=== PATIENT | female | born 2000 | race Two or more races ===

== ENCOUNTER → 2023-11-15 | Outpatient (CLI) | payer BC ==
[2023-11-15 07:20] LABS: Basophils # (auto) 0 10 ^3/uL (0-0.2); Basophils % (auto) 0.3 % (0.0-2.0); Eosinophils # (auto) 0.1 10 ^3/uL (0-0.8); Eosinophils % (auto) 0.8 % (0.0-7.0); Hematocrit 41.6 % (36.0-46.0); Lymphocytes % (auto) 29.2 % (10.0-50.0); Mean Corpuscular Hemoglobin 29.8 pg (28.0-32.0); Mean Corpuscular Hgb Conc. 33.6 g/dL (32.0-36.0); Mean Corpuscular Volume 88.7 fL (80.0-100.0); Monocytes # (auto) 0.3 10 ^3/uL (0-1.3); Monocytes % (auto) 4.5 % (0.0-12.0); Neutrophils # (auto) 4.6 10 ^3/uL (1.6-8.6); Neutrophils % (auto) 65.2 % (37.0-80.0); Red Blood Cells 4.69 10^6/uL (4.0-5.20); Red Cell Distribution Width 12.9 % (11.8-14.3)
[2023-11-15 07:27] LABS: Chloride 107 mmol/L (98-107); Potassium 3.4 mmol/L (3.5-5.1); Sodium 139 mmol/L (136-145)
[2023-11-15 07:28] LABS: Anion Gap 8 (5-15); Carbon Dioxide 24 mmol/L (20-30)
[2023-11-15 07:29] LABS: Calcium 9.2 mg/dL (8.5-10.1)
[2023-11-15 07:33] LABS: Glucose 131 mg/dL (74-106); Triglycerides 91 mg/dL (< 150)
[2023-11-15 07:34] LABS: BUN/Creatinine Ratio 12.5 (10.0-20.0); Blood Urea Nitrogen 9 mg/dL (9-23); LDL Cholesterol 90 mg/dL (< 100)
[2023-11-15 07:35] LABS: Cholesterol 156 mg/dL (< 200); HDL Cholesterol 55 mg/dL (40-59)
[2023-11-15 10:47] LABS: Large Platelets FEW; Platelet Estimate Adequate
== END | disposition home or self-care (01) ==
LOC: LAB 06:49
PROVIDERS: ATTEND Student in an Organized Health Care Education/Training Program
DX: E03.9 Hypothyroidism, unspecified (principal)
CPT/HCPCS: 36415; 80048; 80061; 84443; 85025

== ENCOUNTER → 2024-06-19 | Outpatient (CLI) | payer BC ==
[2024-06-19 12:32] LABS: Basophils # (auto) 0 10 ^3/uL (0-0.2); Basophils % (auto) 0.2 % (0.0-2.0); Eosinophils # (auto) 0 10 ^3/uL (0-0.8); Eosinophils % (auto) 0.3 % (0.0-7.0); Hematocrit 41.9 % (36.0-46.0); Hemoglobin 14.5 g/dL (12.2-16.2); Lymphocytes # (auto) 1.8 10 ^3/uL (0.4-5.4); Lymphocytes % (auto) 16.5 % (10.0-50.0); Mean Corpuscular Hemoglobin 31.8 pg (28.0-32.0); Mean Corpuscular Hgb Conc. 34.6 g/dL (32.0-36.0); Mean Corpuscular Volume 91.8 fL (80.0-100.0); Monocytes # (auto) 0.4 10 ^3/uL (0-1.3); Monocytes % (auto) 4.1 % (0.0-12.0); Neutrophils # (auto) 8.4 10 ^3/uL (1.6-8.6); Neutrophils % (auto) 78.9 % (37.0-80.0); Platelet Count (auto) 213 10^3/uL (140-450); Red Blood Cells 4.56 10^6/uL (4.0-5.20); White Blood Cell 10.6 10^3/uL (4.4-10.8)
[2024-06-19 13:07] LABS: Amphetamine Screen, Urine Neg (NEGATIVE)
[2024-06-19 13:08] LABS: Barbiturate Scree,Urine Neg (NEGATIVE); Benzodiazephine Screen, Urine Neg (NEGATIVE); Cannabinoid Screen, Urine Pos (NEGATIVE); Cocaine Screen, Urine Neg (NEGATIVE); Opiate Scree,Urine Neg (NEGATIVE); Phencyclidine Screen, Urine Neg (NEGATIVE)
[2024-06-20 10:06] LABS: RPR Non Reactive (Non Reactive)
[2024-06-20 13:06] LABS: Chlamydia Trachomatis, NAA Negative (Negative); Neisseria gonorrhoeae, NAA Negative (Negative)
== END | disposition home or self-care (01) ==
LOC: LAB 11:59
PROVIDERS: ATTEND Obstetrics & Gynecology
DX: Z31.430 Encounter of female for testing for genetic disease carrier status for procreative management (principal); N39.0 Urinary tract infection, site not specified
CPT/HCPCS: 36415; 80307; 83036; 84144; 84702; 85025; 86592; 86703; 86762; 86850; 86900; 86901; 87086; 87340

== ENCOUNTER → 2024-09-29 | Outpatient (CLI) | payer BC ==
[2024-09-29 10:28] LABS: Basophils # (auto) 0 10 ^3/uL (0-0.2); Basophils % (auto) 0.3 % (0.0-2.0); Eosinophils # (auto) 0 10 ^3/uL (0-0.8); Eosinophils % (auto) 0.2 % (0.0-7.0); Hematocrit 39.1 % (36.0-46.0); Hemoglobin 13.4 g/dL (12.2-16.2); Lymphocytes # (auto) 1.6 10 ^3/uL (0.4-5.4); Lymphocytes % (auto) 18.7 % (10.0-50.0); Mean Corpuscular Hemoglobin 32.1 pg (28.0-32.0); Mean Corpuscular Hgb Conc. 34.4 g/dL (32.0-36.0); Mean Corpuscular Volume 93.4 fL (80.0-100.0); Monocytes # (auto) 0.5 10 ^3/uL (0-1.3); Monocytes % (auto) 6.1 % (0.0-12.0); Neutrophils # (auto) 6.3 10 ^3/uL (1.6-8.6); Neutrophils % (auto) 74.7 % (37.0-80.0); Platelet Count (auto) 196 10^3/uL (140-450); Red Blood Cells 4.19 10^6/uL (4.0-5.20); Red Cell Distribution Width 12.3 % (11.8-14.3); White Blood Cell 8.5 10^3/uL (4.4-10.8)
== END | disposition home or self-care (01) ==
LOC: LAB 09:42
PROVIDERS: ATTEND Obstetrics & Gynecology
DX: Z34.00 Encounter for supervision of normal first pregnancy, unspecified trimester (principal); Z3A.00 Weeks of gestation of pregnancy not specified
CPT/HCPCS: 36415; 82951; 83036; 85025; 87086

== ENCOUNTER → 2024-10-13 | Outpatient (CLI) | payer BC | END | disposition home or self-care (01) | LOC: LAB 11:42 | PROVIDERS: ATTEND Obstetrics & Gynecology | DX: E03.9 Hypothyroidism, unspecified (principal) | CPT/HCPCS: 36415; 84443 ==

== ENCOUNTER 2024-10-23 06:18 | Observation (INO) | payer BC ==
[~2024-10-23] VITALS: Ht 170.2 cm; Wt 77.1 kg
--- NOTE | 2024-10-24 12:35 | DVHDS2 ---
Physician Discharge Progress N Final Diagnosis: gdm,[id number] Operations or Procedures: Operations or Procedures nst,sono Condition on Discharge: Good Disposition: Home Discharge Instructions: Diet: Regular Activity: Light activity Medications: na Follow Up Care: Specialist: 2d Discharge Statement: "Patient was advised to return to the ER or call 911 if any headaches, dizziness, shortness of breath, chest pain, abdominal pain, bleeding, fevers, or worsening of medical condition. Patient was counseled about treatment plan, medications, possible side effects, patientverbalized understanding. All questions were answered to the best of my ability. This discharge took greater then 30 minutes in planning, reviewing documentation, counseling the patient, and discussing with other team members." Visit Coding OBGYN Date of Service: Oct 23, 2024 Billing Provider: LOGAN JAMA DO MILL HELPER Common Visit Codes: 82041-[id number] OBS CARE (HIGH) MILL HELPER Procedure Codes: 14456-42- NON-STRESS TEST LOGAN JAMA DO Oct 24, 2024 12:35
== END 2024-10-23 11:18 | disposition home or self-care (01) ==
LOC: UNDOADMOB 10:05 → LDRP 10:05 → UNDODISOB 11:18
PROVIDERS: ADMIT Obstetrics & Gynecology; ATTEND Obstetrics & Gynecology
DX: O24.419 Gestational diabetes mellitus in pregnancy, unspecified control (principal); O99.283 Endocrine, nutritional and metabolic diseases complicating pregnancy, third trimester; E03.9 Hypothyroidism, unspecified; Z98.890 Other specified postprocedural states; Z79.899 Other long term (current) drug therapy; Z3A.30 30 weeks gestation of pregnancy
CPT/HCPCS: 81002; 82948; 94760; G0378

== ENCOUNTER 2024-10-30 06:11 | Observation (INO) | payer BC ==
[2024-10-30] MEDS ORDERED: PREN1TAB71 OR (11:02)
--- NOTE | 2024-10-30 11:07 | DVH ---
BIOPHYSICAL PROFILE HISTORY: GDMA2 Comparison Study: None TECHNIQUE: Multiple real-time grayscale sonographic images through the gravid uterus of the fetus wi th duplex Doppler color flow and M-mode spectral analysis FINDINGS: BIOPHYSICAL PROFILE: breathing score: 2 movement score: 2 tone score: 2 Quantitative DANIELITO score: 2 (DANIELITO: 12 Cm.) Total score: 8 The cervix is not visualized Single live fetus in cephalic presentation. heart rate 145 beats per minute. Posterior placenta without previa or abruption IMPRESSION: Biophysical profile score: 8
--- NOTE | 2024-10-30 22:59 | DVHDS2 ---
Discharge Summary Date of Admission Oct 30, 2024 at 10:13 Date of Discharge: Oct 30, 2024 Admitting Diagnosis GDM A1 Hypothyroid 32 weeks Labs/Diagnostic Data: Laboratory Results Test 10/30/24 11:38 POC Glucose 108 mg/dl (70-106) Brief Hx & Hospital Course: NST Condition at Discharge: Good Final Diagnosis/Problems List GDM A1 hypothyroid Discharge Disposition: Home Discharge Instruct/Medications Diet: Consistent carbohydrate Activity: No Restrictions, As Tolerated Activity comment: Kick counts labor precautions Discharge Statement: "Patient was advised to return to the ER or call 911 if any headaches, dizziness, shortness of breath, chest pain, abdominal pain, bleeding, fevers, or worsening of medical condition. Patient was counseled about treatment plan, medications, possible side effects, patientverbalized understanding. All questions were answered to the best of my ability. This discharge took greater then 30 minutes in planning, reviewing documentation, counseling the patient, and discussing with other team members." ASSESSMENT ASSESSMENT Assessment Visit Coding OBGYN Date of Service: Oct 30, 2024 Billing Provider: ANDREWS WEN DO PURSE MAKER Common Visit Codes: 43422-IJL/OBS SAME DATE (LOW), 99351-GEX/OBS SAME DATE (MOD), 80772-ZMA/OBS SAME DATE (HIGH) PURSE MAKER Procedure Codes: 68750-90- NON-STRESS TEST ANDREWS WEN DO Oct 30, 2024 22:59
[2024-11-14] MEDS ORDERED: LEVO25TA6 PO (17:40)
== END 2024-10-30 12:01 | disposition home or self-care (01) ==
LOC: LDRP 10:13
PROVIDERS: ADMIT Obstetrics & Gynecology; ATTEND Obstetrics & Gynecology
DX: O24.419 Gestational diabetes mellitus in pregnancy, unspecified control (principal); O99.283 Endocrine, nutritional and metabolic diseases complicating pregnancy, third trimester; E03.9 Hypothyroidism, unspecified; Z3A.32 32 weeks gestation of pregnancy; Z98.890 Other specified postprocedural states; Z79.899 Other long term (current) drug therapy
CPT/HCPCS: 76818; 81002; 82948; 82962; G0378; 76819

== ENCOUNTER 2024-11-06 10:11 | Observation (INO) | payer BC ==
[~2024-11-06 10:11] MED LIST: PREN1TAB71 OR
--- NOTE | 2024-11-06 11:20 | DVH ---
BIOPHYSICAL PROFILE HISTORY: GDMA1, hypothyroidism Comparison Study: None TECHNIQUE: Multiple real-time grayscale sonographic images through the gravid uterus of the fetus wi th duplex Doppler color flow and M-mode spectral analysis FINDINGS: BIOPHYSICAL PROFILE: breathing score: 2 movement score: 2 tone score: 2 Quantitative DANIELITO score: 2 (DANIELITO: 11.4 Cm.) Total score: 8 The cervix is not visualized Single live fetus in cephalic presentation. heart rate 155 beats per minute. Posterior placenta without previa or abruption Possible nuchal cord. IMPRESSION: Biophysical profile score: 8 Possible nuchal cord is present.
--- NOTE | 2024-11-06 11:22 | DVHDS2 ---
Physician Discharge Progress N Final Diagnosis: gdm Operations or Procedures: Operations or Procedures nst,sono Condition on Discharge: Good Disposition: Home Discharge Instructions: Diet: Consistent carbohydrate Activity: No Restrictions, As Tolerated Medications: na Follow Up Care: Specialist: 4d Discharge Statement: "Patient was advised to return to the ER or call 911 if any headaches, dizziness, shortness of breath, chest pain, abdominal pain, bleeding, fevers, or worsening of medical condition. Patient was counseled about treatment plan, medications, possible side effects, patientverbalized understanding. All questions were answered to the best of my ability. This discharge took greater then 30 minutes in planning, reviewing documentation, counseling the patient, and discussing with other team members." Visit Coding OBGYN Date of Service: Nov 06, 2024 Billing Provider: LOGAN JAMA DO COOKIE MIXER HELPER Common Visit Codes: 42400-[id number] OBS CARE (HIGH) COOKIE MIXER HELPER Procedure Codes: 45440-47- NON-STRESS TEST LOGAN JAMA DO Nov 06, 2024 11:22
== END 2024-11-06 11:52 | disposition home or self-care (01) ==
LOC: LDRP 10:11
PROVIDERS: ADMIT Obstetrics & Gynecology; ATTEND Obstetrics & Gynecology
DX: O24.419 Gestational diabetes mellitus in pregnancy, unspecified control (principal); Z98.890 Other specified postprocedural states; Z79.899 Other long term (current) drug therapy; Z3A.33 33 weeks gestation of pregnancy
CPT/HCPCS: 76818; 81002; 82948; 82962; 94760; G0378; 76819

== ENCOUNTER 2024-11-13 09:38 | Observation (INO) | payer BC ==
--- NOTE | 2024-11-14 17:29 | DVH ---
BIOPHYSICAL PROFILE HISTORY: GDMA1, Hypothyroid TECHNIQUE: Multiple transabdominal real-time grayscale sonographic images through the gravid uterus of the fetus with duplex Doppler color flow and M-mode spectral analysis FINDINGS: BIOPHYSICAL PROFILE: breathing score: 2 movement score: 2 tone score: 2 Quantitative DANIELITO score: 2 (DANIELITO: 12.2 Cm.) Total score: 8 The cervix is not well-visualized Single live fetus in cephalic presentation. heart rate 141 beats per minute. Grade 2 posterior placenta without previa or abruption IMPRESSION: Biophysical profile score: 8
[2024-11-14] MEDS ORDERED: LEVO25TA6 PO ×2 (17:40)
--- NOTE | 2024-11-14 23:01 | DVHDS2 ---
Physician Discharge Progress N Final Diagnosis: testing for GDM,A1/hypothyroidism Operations or Procedures: Operations or Procedures 24yo IUP@34.2wks VSS NST reactive FKC/PTL precautions reviewed. Dr. Zafar consulted, agrees with POC. Other Interventions Other Interventions [facility] [id number] [place] [id number] Ph: [phone] DIAGNOSTIC IMAGING Diagnostic Imaging Report : [id number] Signed PATIENT: HALEY CARTER ACCT: [id number] UNIT: [id number] : 2000 LOC: [facility] ROOM / BED: TRIAGE3 / A AGE / SEX: 24 / F ADM STATUS: ADM IN SERVICE 24 ORDERING PHYSICIAN: LENARD LÓPEZ CNM PROCEDURE(s): BPP - BIOPHYSICAL PROFILE REASON: GDMA1, Hypothyroid ORDER NUMBER(s): [id number], ACCESSION NUMBER(s): [id number] BIOPHYSICAL PROFILE HISTORY: GDMA1, Hypothyroid TECHNIQUE: Multiple transabdominal real-time grayscale sonographic images through the gravid uterus of the fetus with duplex Doppler color flow and M-mode spectral analysis FINDINGS: BIOPHYSICAL PROFILE: breathing score: 2 movement score: 2 tone score: 2 Quantitative DANIELITO score: 2 (DANIELITO: 12.2 Cm.) Total score: 8 The cervix is not well-visualized Single live fetus in cephalic presentation. heart rate 141 beats per minute. Grade 2 posterior placenta without previa or abruption IMPRESSION: Biophysical profile score: 8 ATED BY: MIRIAM GILMORE DO DICTATED DATE/TIME: 11/14/241725 SIGNED BY: MIRIAM GILMORE DO SIGNED DATE/TIME: 11/14/241725 CC: Condition on Discharge: Stable Disposition: Home Discharge Instructions: Diet: See Comment Diet comment: GDMA 1 DIET INSTRUCTED BY PROVIDER Activity: No Restrictions, As Tolerated Follow Up/Referral: PLEASE CONTINUE ONCE WEEKLY NST/BPP'S AND RETURN Wednesday11/20/24 @1500, OR RETURN TO [facility]/NEAREST ED FOR ANY CONCERNS/COMPLAINTS Medications: CONTINUE ALL PRESCIPTION MEDICATIONS EXACTLY PRESCRIBED Follow Up Care: Specialist: f/u in 1 wk Discharge Statement: "Patient was advised to return to the ER or call 911 if any headaches, dizziness, shortness of breath, chest pain, abdominal pain, bleeding, fevers, or worsening of medical condition. Patient was counseled about treatment plan, medications, possible side effects, patientverbalized understanding. All questions were answered to the best of my ability. This discharge took greater then 30 minutes in planning, reviewing documentation, counseling the patient, and discussing with other team members." Visit Coding OBGYN Date of Service: Nov 14, 2024 Billing Provider: LENARD LÓPEZ CNM CORE MACHINE TENDER Common Visit Codes: 91334-[id number] OBS CARE (HIGH) CORE MACHINE TENDER Procedure Codes: 00307-07- NON-STRESS TEST LENARD LÓPEZ CNM Nov 14, 2024 23:01
== END 2024-11-14 17:56 | disposition home or self-care (01) ==
LOC: LDRP 11-14 15:53 → UNDOADMOB 11-14 15:53 → LDRP 11-14 16:27 → UNDODISOB 11-14 16:58
PROVIDERS: ADMIT Obstetrics & Gynecology; ATTEND Obstetrics & Gynecology
DX: O24.419 Gestational diabetes mellitus in pregnancy, unspecified control (principal); O99.283 Endocrine, nutritional and metabolic diseases complicating pregnancy, third trimester; E03.9 Hypothyroidism, unspecified; Z98.890 Other specified postprocedural states; Z79.899 Other long term (current) drug therapy; Z3A.34 34 weeks gestation of pregnancy
CPT/HCPCS: 76818; 76819; 81002; 82948; 82962

== ENCOUNTER 2024-11-20 06:38 | Observation (INO) | payer BC, OTHER ==
[~2024-11-20 06:38] MED LIST changes: +LEVO25TA6 PO
--- NOTE | 2024-11-20 14:03 | DVH ---
CLINICAL HISTORY: Gestational diabetes. COMPARISON: US BIOPHYSICAL PROFILE on DOS: 11/14/24, US BIOPHYSICAL PROFILE on DOS: 11/06/24, US BIOPHY SICAL PROFILE on DOS: 10/30/24 TECHNIQUE: biophysical profile was performed. Transabdominal sonographic images of the fetus we re obtained. FINDINGS: The fetus is in cephalic position. heart rate measures 139 BPM. Amniotic fluid index measures 14.1 cm. The placenta is posterior in position without evidence of previa or abruption. BPP profile is an overall score of 8/8, with 2/2 points for breathing, with at least one episode of breathing over a 30 second duration during a 30 minute observation, 2/2 points for m ovements, with 3 or more discrete body or limb movements, 2/2 points for tone, with one or more episodes of extremity extension with return to flexion, or opening and closing of hand, and 2/ 2 points for amniotic fluid, with at least 1 pocket of amniotic fluid that measures 2 cm in 2 perpend icular planes. IMPRESSION: BPP score of 8/8.
== END 2024-11-20 14:49 | disposition home or self-care (01) ==
LOC: LDRP 13:30
PROVIDERS: ADMIT Obstetrics & Gynecology; ATTEND Obstetrics & Gynecology
DX: O24.419 Gestational diabetes mellitus in pregnancy, unspecified control (principal); Z98.890 Other specified postprocedural states; Z79.899 Other long term (current) drug therapy; Z3A.35 35 weeks gestation of pregnancy
CPT/HCPCS: 76818; 81002; 82948; G0378; 59025; 76819

== ENCOUNTER 2024-11-27 07:56 | Observation (INO) | payer BC, OTHER ==
--- NOTE | 2024-11-27 13:52 | DVH ---
BIOPHYSICAL PROFILE HISTORY: GDMA2, Hypothyroidism Comparison: 11/14/2024 TECHNIQUE: Multiple transabdominal real-time grayscale sonographic images through the gravid uterus of the fetus with duplex Doppler color flow and M-mode spectral analysis FINDINGS: BIOPHYSICAL PROFILE: breathing score: 2/2 movement score: 2/2 tone score: 2/2 Quantitative DANIELITO score: 2/2 (DANIELITO: 14.3 Cm.) Total score: 8/8 The cervix closed Single live fetus in cephalic presentation. heart rate 146 beats per minute. Posterior placenta without previa or abruption IMPRESSION: 1. Biophysical profile score: 8/8 unchanged from previous exam
--- NOTE | 2024-11-28 05:38 | DVHDS2 ---
Discharge Summary Date of Admission November 27, 2024 at 13:14 Date of Discharge: November 27, 2024 Admitting Diagnosis GDM A1 hypothyroid 36-1/7 weeks Labs/Diagnostic Data: Laboratory Results Test 11/27/24 13:49 POC Glucose 90 mg/dl (70-106) Brief Hx & Hospital Course: Reassuring heart tones and fluid. Condition at Discharge: Good Final Diagnosis/Problems List Reassuring heart tones and fluid. Discharge Disposition: Home Discharge Instruct/Medications Diet: Consistent carbohydrate Activity: No Restrictions, As Tolerated Follow Up/Referral: Kick counts labor precautions Discharge Statement: "Patient was advised to return to the ER or call 911 if any headaches, dizzin ess, shortness of breath, chest pain, abdominal pain, bleeding, fevers, or worsening of medical condition. Patient was counseled about treatment plan, medications, possible side effects, patient�verbalized understanding. All questions were answered to the best of my ability. This discharge took greater then 30 minutes in planning, reviewing documentation, counseling the patient, and discussing with other team members." ASSESSMENT ASSESSMENT Assessment Visit Coding OBGYN Date of Service: November 28, 2024 Billing Provider: ANDREWS WEN DO CORPORATE QUALITY ASSURANCE MANAGER Common Visit Codes: 76750-SPY/OBS SAME DATE (LOW), 50066-NKG/OBS SAME DATE (MOD), 72425-FCV/OBS SAME DATE (HIGH) CORPORATE QUALITY ASSURANCE MANAGER Procedure Codes: 61880-31- NON-STRESS TEST ANDREWS WEN DO November 28, 2024 05:38
== END 2024-11-27 14:18 | disposition home or self-care (01) ==
LOC: UNDOADMOB 13:06 → LDRP 13:06 → UNDODISOB 14:18
PROVIDERS: ADMIT Obstetrics & Gynecology; ATTEND Obstetrics & Gynecology
DX: O24.419 Gestational diabetes mellitus in pregnancy, unspecified control (principal); O99.283 Endocrine, nutritional and metabolic diseases complicating pregnancy, third trimester; E03.9 Hypothyroidism, unspecified; Z98.890 Other specified postprocedural states; Z79.899 Other long term (current) drug therapy; Z3A.36 36 weeks gestation of pregnancy
CPT/HCPCS: 59025; 76819; 81002; 82948; 82962; 94760; G0378; 76818

== ENCOUNTER 2024-12-04 07:20 | Observation (INO) | payer BC, OTHER ==
--- NOTE | 2024-12-04 12:03 | DVH ---
CLINICAL HISTORY: Gestational diabetes. COMPARISON: US BIOPHYSICAL PROFILE on DOS: 11/27/24, US BIOPHYSICAL PROFILE on DOS: 11/20/24, US BIOPHYS ICAL PROFILE on DOS: 11/14/24 TECHNIQUE: biophysical profile was performed. Transabdominal sonographic images of the fetus we re obtained. FINDINGS: The fetus is in cephalic position. heart rate measures 132 BPM. Amniotic fluid index measures 14.2 cm. The placenta is posterior in position. BPP profile is an overall score of 8/8, with 2/2 points for breathing, with at least one episode of breathing over a 30 second duration during a 30 minute observation, 2/2 points for m ovements, with 3 or more discrete body or limb movements, 2/2 points for tone, with one or more episodes of extremity extension with return to flexion, or opening and closing of hand, and 2/ 2 points for amniotic fluid, with at least 1 pocket of amniotic fluid that measures 2 cm in 2 perpend icular planes. IMPRESSION: BPP score of 8/8.
--- NOTE | 2024-12-04 17:39 | DVHDS2 ---
Physician Discharge Progress N Final Diagnosis: GDM Secondary Diagnosis: Encounter for surveillance Operations or Procedures: Operations or Procedures NST reactive reviewed BPP/DANIELITO WNL Commentary: Commentary status reassuring Condition on Discharge: Stable Disposition: Home Discharge Instructions: Diet: Consistent carbohydrate Activity: No Restrictions, As Tolerated Follow Up/Referral: As scheduled Medications: N/A Follow Up Care: Discharge Statement: "Patient was advised to return to the ER or call 911 if any headaches, dizziness, shortness of breath, chest pain, abdominal pain, bleeding, fevers, or worsening of medical condition. Patient was counseled about treatment plan, medications, possible side effects, patientverbalized understanding. All questions were answered to the best of my ability. This discharge took greater then 30 minutes in planning, reviewing documentation, counseling the patient, and discussing with other team members." Visit Coding OBGYN Date of Service: December 04, 2024 Billing Provider: TERESA HARDIN DO WATER MAIN INSTALLER HELPER Common Visit Codes: 23311-[id number] INP/OBS CARE(HIGH) WATER MAIN INSTALLER HELPER Procedure Codes: 37575-63- NON-STRESS TEST TERESA HARDIN DO December 04, 2024 17:39
== END 2024-12-04 12:30 | disposition home or self-care (01) ==
LOC: UNDOADMOB 10:26 → LDRP 10:26
PROVIDERS: ADMIT Obstetrics & Gynecology; ATTEND Obstetrics & Gynecology
DX: O24.419 Gestational diabetes mellitus in pregnancy, unspecified control (principal); Z98.890 Other specified postprocedural states; Z79.899 Other long term (current) drug therapy; Z3A.36 36 weeks gestation of pregnancy
CPT/HCPCS: 76818; 81002; 82948; 82962; G0378; 59025; 76819

== ENCOUNTER 2024-12-05 11:47 | Observation (INO) | payer BC, OTHER ==
[2024-12-05 12:56] LABS: Protein, Urine 55.2 mg/dL (1-14)
[2024-12-05 12:57] LABS: Basophils # (auto) 0 10 ^3/uL (0-0.2); Basophils % (auto) 0.1 % (0.0-2.0); Eosinophils # (auto) 0 10 ^3/uL (0-0.8); Eosinophils % (auto) 0.2 % (0.0-7.0); Hematocrit 41.4 % (36.0-46.0); Hemoglobin 14.6 g/dL (12.2-16.2); Lymphocytes # (auto) 1.3 10 ^3/uL (0.4-5.4); Lymphocytes % (auto) 16.6 % (10.0-50.0); Mean Corpuscular Hemoglobin 32.1 pg (28.0-32.0); Mean Corpuscular Hgb Conc. 35.4 g/dL (32.0-36.0); Mean Corpuscular Volume 90.6 fL (80.0-100.0); Monocytes # (auto) 0.5 10 ^3/uL (0-1.3); Monocytes % (auto) 6.4 % (0.0-12.0); Neutrophils # (auto) 6.1 10 ^3/uL (1.6-8.6); Neutrophils % (auto) 76.7 % (37.0-80.0); Platelet Count (auto) 168 10^3/uL (140-450); Red Blood Cells 4.57 10^6/uL (4.0-5.20); Red Cell Distribution Width 12.3 % (11.8-14.3)
[2024-12-05 12:59] LABS: Creatinine, Urine 106.83 mg/dL (30.0-125.0); Urine Protein/Creatinine Ratio 0.52
[2024-12-05 13:01] LABS: Urine Bacteria FEW /hpf (None Seen); Urine Blood Negative /uL (Negative); Urine Clarity Clear (Clear); Urine Color Light-Yellow (Yellow); Urine Mucus FEW (None Seen); Urine Protein, UAD 1+ (Negative); Urine Specific Gravity 1.019 (1.001-1.035); Urine Squamous Epithelial Cell FEW /hpf (<5); Urine Urobilinogen Normal (Negative); Urine WBC 5 /HPF (0-5); Urine pH 6.5 (5.0-9.0)
[2024-12-05 13:10] LABS: Alanine Aminotransferase 19 U/L (7-40); Anion Gap 10 (5-15); BUN/Creatinine Ratio 19.6 (10.0-20.0); Blood Urea Nitrogen 9 mg/dL (9-23); Calcium 9.4 mg/dL (8.7-10.4); Carbon Dioxide 21 mmol/L (20-31); Chloride 105 mmol/L (98-107); Glucose 92 mg/dL (74-106); Potassium 4.1 mmol/L (3.5-5.1); Total Protein 6.6 g/dL (5.7-8.2); Uric Acid 4.5 mg/dL (3.1-7.8)
[2024-12-05 13:11] LABS: Bilirubin, Total 0.4 mg/dL (0.2-1.0)
[2024-12-05 13:15] LABS: Alkaline Phosphatase 155 U/L (46-116); Aspartate Aminotransferase 12 U/L (13-40); INR 0.92 (0.9-1.15); Partial Thromboplastin Time 30.1 SEC (24.5-34.5); Prothrombin Time 9.8 sec (9.3-11.8); Sodium 136 mmol/L (136-145)
--- NOTE | 2024-12-05 23:09 | DVHDS2 ---
Physician Discharge Progress N Final Diagnosis: rule out preeclampsia Secondary Diagnosis: GDM, A1 Hypothyroidism Operations or Procedures: Operations or Procedures 24yo IUP@37.2wks was sent down from dr. qureshi's office for BP of 140/98. Pt denies LOF/VB/UCs/AQUINO/vision changes/RUQ pain. VSS, normotensive in OB triage (see CPN) NST reactive today BPP 8/8 on 12/04/24 FKC/PTL/PreE precautions reviewed. f/u on 12/07/24 with [address] Qureshi consulted, agrees with POC. Laboratory Tests Test 12/05/24 11:55 12/05/24 12:13 Range/Units Urine Color Light-yellow Yellow Urine Clarity Clear Clear Urine pH 6.5 5.0-9.0 Urine Specific [place] 1.019 1.001-1.035 Urine Protein 1+ H Negative Urine Ketones Negative Negative Urine Blood Negative Negative /uL Urine Nitrite Negative Negative Urine Bilirubin Negative Negative Urine Urobilinogen Normal Negative mg/dL Urine Leukocyte Esterase 3+ Negative /uL Urine RBC 2 0 - 4 /hpf Urine Microscopic WBC 5 0-5 /HPF Urine Squamous Epithelial Cells Few <5 /hpf Urine Bacteria Few H None Seen /hpf Urine Mucus Few None Seen Urine Creatinine 106.83 30.0-125.0 mg/dL Urine Protein/Creatinine Ratio 0.52 Urine Glucose Normal Normal mg/dL Urine Total Protein 55.2 H 1-14 mg/dL White Blood Count 8.0 4.4-10.8 10^3/uL Red Blood Count 4.57 4.0-5.20 10^6/uL Hemoglobin 14.6 12.2-16.2 g/dL Hematocrit 41.4 36.0-46.0 % Mean Corpuscular Volume 90.6 80.0-100.0 fL Mean Corpuscular Hemoglobin 32.1 H 28.0-32.0 pg Mean Corpuscular Hemoglobin Concent 35.4 32.0-36.0 g/dL Red Cell Distribution Width 12.3 11.8-14.3 % Platelet Count 168 140-450 10^3/uL Mean Platelet Volume 10.2 6.9-10.8 fL Neutrophils (%) (Auto) 76.7 37.0-80.0 % Lymphocytes (%) (Auto) 16.6 10.0-50.0 % Monocytes (%) (Auto) 6.4 0.0-12.0 % Eosinophils (%) (Auto) 0.2 0.0-7.0 % Basophils (%) (Auto) 0.1 0.0-2.0 % Neutrophils # (Auto) 6.1 1.6-8.6 10 ^3/uL Lymphocytes # (Auto) 1.3 0.4-5.4 10 ^3/uL Monocytes # (Auto) 0.5 0-1.3 10 ^3/uL Eosinophils # (Auto) 0 0-0.8 10 ^3/uL Basophils # (Auto) 0 0-0.2 10 ^3/uL Nucleated Red Blood Cells 0.0 % Prothrombin Time 9.8 9.3-11.8 sec Prothrombin Time INR 0.92 0.9-1.15 Activated Partial Thromboplast Time 30.1 24.5-34.5 SEC Sodium Level 136 136-145 mmol/L Potassium Level 4.1 3.5-5.1 mmol/L Chloride Level 105 98-107 mmol/L Carbon Dioxide Level 21 20-31 mmol/L Anion Gap 10 5-15 Blood Urea Nitrogen 9 9-23 mg/dL Creatinine 0.46 L 0.550-1.02 mg/dL Glomerular Filtration Rate Calc 136 >90 mL/min BUN/Creatinine Ratio 19.6 10.0-20.0 Serum Glucose 92 74-106 mg/dL Uric Acid 4.5 3.1-7.8 mg/dL Calcium Level 9.4 8.7-10.4 mg/dL Total Bilirubin 0.4 0.2-1.0 mg/dL Aspartate Amino Transferase (AST) 12 L 13-40 U/L Alanine Aminotransferase (ALT) 19 7-40 U/L Alkaline Phosphatase 155 H 46-116 U/L Total Protein 6.6 5.7-8.2 g/dL Albumin 4.0 3.2-4.8 g/dL Condition on Discharge: Stable Disposition: Home Discharge Instructions: Diet: Consistent carbohydrate Activity: No Restrictions, As Tolerated Medications: see med list Follow Up Care: Specialist: f/u on 12/07/24 with 24 hour urine collection Discharge Statement: "Patient was advised to return to the ER or call 911 if any headaches, dizziness, shortness of breath, chest pain, abdominal pain, bleeding, fevers, or worsening of medical condition. Patient was counseled about treatment plan, medications, possible side effects, patientverbalized understanding. All questions were answered to the best of my ability. This discharge took greater then 30 minutes in planning, reviewing documentation, counseling the patient, and discussing with other team members." Visit Coding OBGYN Date of Service: December 05, 2024 Billing Provider: LENARD LÓPEZ CNM GINGER FARMER Common Visit Codes: 23217-[id number] OBS CARE (HIGH) LENARD LÓPEZ CNM December 05, 2024 23:09
== END 2024-12-05 14:01 | disposition home or self-care (01) ==
LOC: LDRP 11:47 → UNDOADMOB 11:47 → LDRP 11:56
PROVIDERS: ADMIT Obstetrics & Gynecology; ATTEND Obstetrics & Gynecology
DX: O24.419 Gestational diabetes mellitus in pregnancy, unspecified control (principal); O99.283 Endocrine, nutritional and metabolic diseases complicating pregnancy, third trimester; E03.9 Hypothyroidism, unspecified; Z98.890 Other specified postprocedural states; Z79.899 Other long term (current) drug therapy; Z3A.37 37 weeks gestation of pregnancy; Z86.2 Personal history of diseases of the blood and blood-forming organs and certain disorders involving the immune mechanism
CPT/HCPCS: 36415; 59025; 80053; 81001; 81002; 82570; 84156; 84550; 85025; 85610; 85730; 94760; G0378

== ENCOUNTER 2024-12-07 06:28 | Observation (INO) | payer BC, OTHER ==
--- NOTE | 2024-12-07 11:21 | DVH ---
BIOPHYSICAL PROFILE HISTORY: PIH/GDMA1 Comparison Study: US BIOPHYSICAL PROFILE on DOS: 12/04/24, US BIOPHYSICAL PROFILE on DOS: 11/27/24, US BIOPHYSICAL PROFILE on DOS: 11/20/24, US BIOPHYSICAL PROFILE on DOS: 11/14/24, US BIOPHYSICAL PROFILE on DOS: 11/06/24 TECHNIQUE: Multiple real-time grayscale sonographic images through the gravid uterus of the fetus wi th duplex Doppler color flow and M-mode spectral analysis FINDINGS: BIOPHYSICAL PROFILE: breathing score: 2 movement score: 2 tone score: 2 Quantitative DANIELITO score: 2 (DANIELITO: 16.4 Cm.) Total score: 8 The cervix was not visualized Single live fetus in cephalic presentation. heart rate 144 beats per minute. Posterior placenta without previa or abruption IMPRESSION: Biophysical profile score: 8
[2024-12-07 12:17] LABS: Protein, Urine 15.9 mg/dL (1-14)
[2024-12-07 12:20] LABS: Creatinine, Urine 45.68 mg/dL (30.0-125.0); Urine Protein/Creatinine Ratio 0.35
[2024-12-07 12:38] LABS: Protein, Urine 8.8 mg/dL (1-14)
[2024-12-07 13:02] LABS: Creatinine, Urine 37.72 mg/dL (30.0-125.0)
[2024-12-07 14:05] LABS: Body Surface Area 2.11
[2024-12-07 14:17] LABS: Creatinine Clearance, Urine 126.33 mL/min (75-115)
--- NOTE | 2024-12-08 13:34 | DVHDS2 ---
Physician Discharge Progress N Final Diagnosis: gdm,pih 37wks Operations or Procedures: Operations or Procedures nst reactive reviewed,sono Condition on Discharge: Good Disposition: Home Discharge Instructions: Diet: Consistent carbohydrate Activity: No Restrictions, As Tolerated Medications: na Follow Up Care: Specialist: 3d Discharge Statement: "Patient was advised to return to the ER or call 911 if any headaches, dizziness, shortness of breath, chest pain, abdominal pain, bleeding, fevers, or worsening of medical condition. Patient was counseled about treatment plan, medications, possible side effects, patientverbalized understanding. All questions were answered to the best of my ability. This discharge took greater then 30 minutes in planning, reviewing documentation, counseling the patient, and discussing with other team members." Visit Coding OBGYN Date of Service: December 07, 2024 Billing Provider: LOGAN JAMA DO SOLE EDGE INKER MACHINE Common Visit Codes: 85456-[place] OBS CARE (HIGH) SOLE EDGE INKER MACHINE Procedure Codes: 38939-01- NON-STRESS TEST LOGAN JAMA DO December 08, 2024 13:34
== END 2024-12-07 12:51 | disposition home or self-care (01) ==
LOC: LDRP 10:33
PROVIDERS: ADMIT Obstetrics & Gynecology; ATTEND Obstetrics & Gynecology
DX: O24.419 Gestational diabetes mellitus in pregnancy, unspecified control (principal); O13.3 Gestational [pregnancy-induced] hypertension without significant proteinuria, third trimester; Z3A.37 37 weeks gestation of pregnancy; Z79.899 Other long term (current) drug therapy; Z98.890 Other specified postprocedural states
CPT/HCPCS: 76818; 82570; 82575; 82948; 84156; 94760; G0378; 59025; 76819

== ENCOUNTER 2024-12-13 07:03 | Observation (INO) | payer BC, OTHER ==
[~2024-12-13] VITALS: Ht 175.3 cm; Wt 93.4 kg
--- NOTE | 2024-12-13 10:18 | DVH ---
BIOPHYSICAL PROFILE HISTORY: GDMA1 TECHNIQUE: Multiple transabdominal real-time grayscale sonographic images through the gravid uterus of the fetus with duplex Doppler color flow and M-mode spectral analysis FINDINGS: BIOPHYSICAL PROFILE: breathing score: 2 movement score: 2 tone score: 2 Quantitative DANIELITO score: 2 (DANIELITO: 15.9 Cm.) Total score: 8 The cervix not well visualized. Single live fetus in cephalic presentation. heart rate 149 beats per minute. Posterior placenta without previa or abruption IMPRESSION: Biophysical profile score: 8
[2024-12-13 11:14] LABS: Urine Bacteria None Seen /hpf (None Seen)
[2024-12-13 11:21] LABS: Basophils # (auto) 0 10 ^3/uL (0-0.2); Basophils % (auto) 0.3 % (0.0-2.0); Eosinophils # (auto) 0 10 ^3/uL (0-0.8); Eosinophils % (auto) 0.4 % (0.0-7.0); Hemoglobin 15.2 g/dL (12.2-16.2); Lymphocytes # (auto) 1.9 10 ^3/uL (0.4-5.4); Lymphocytes % (auto) 24.7 % (10.0-50.0); Mean Corpuscular Hemoglobin 32.1 pg (28.0-32.0); Mean Corpuscular Hgb Conc. 35.3 g/dL (32.0-36.0); Mean Corpuscular Volume 90.9 fL (80.0-100.0); Monocytes # (auto) 0.6 10 ^3/uL (0-1.3); Monocytes % (auto) 7.6 % (0.0-12.0); Neutrophils # (auto) 5.1 10 ^3/uL (1.6-8.6); Nucleated Red Blood Cells % 0.2 %; Platelet Count (auto) 177 10^3/uL (140-450); Red Blood Cells 4.73 10^6/uL (4.0-5.20); Red Cell Distribution Width 12.6 % (11.8-14.3); White Blood Cell 7.6 10^3/uL (4.4-10.8)
[2024-12-13 11:22] LABS: Urine Blood Negative /uL (Negative); Urine Clarity Clear (Clear); Urine Color Light-Yellow (Yellow); Urine Protein, UAD Negative (Negative); Urine Specific Gravity 1.005 (1.001-1.035); Urine Squamous Epithelial Cell FEW /hpf (<5); Urine Urobilinogen Normal (Negative); Urine WBC < 1 /HPF (0-5); Urine pH 6.5 (5.0-9.0)
[2024-12-13 11:34] LABS: INR 0.86 (0.9-1.15); Partial Thromboplastin Time 30.2 SEC (24.5-34.5); Prothrombin Time 9.3 sec (9.3-11.8)
[2024-12-13 11:36] LABS: Protein, Urine < 6.0 mg/dL (1-14)
[2024-12-13 11:38] LABS: Creatinine, Urine 41.25 mg/dL (30.0-125.0); Urine Protein/Creatinine Ratio 0.15
[2024-12-13 11:39] LABS: Alanine Aminotransferase 23 U/L (7-40); Albumin 4.2 g/dL (3.2-4.8); Anion Gap 8 (5-15); Aspartate Aminotransferase 15 U/L (13-40); BUN/Creatinine Ratio 11.1 (10.0-20.0); Calcium 9.7 mg/dL (8.7-10.4); Carbon Dioxide 22 mmol/L (20-31); Chloride 105 mmol/L (98-107); Glucose 92 mg/dL (74-106); Potassium 4.5 mmol/L (3.5-5.1); Total Protein 6.7 g/dL (5.7-8.2)
[2024-12-13 11:40] LABS: Bilirubin, Total 0.5 mg/dL (0.2-1.0)
[2024-12-13 11:41] LABS: Alkaline Phosphatase 183 U/L (46-116); Blood Urea Nitrogen 6 mg/dL (9-23); Sodium 135 mmol/L (136-145)
[2024-12-13 11:51] LABS: Uric Acid 4.7 mg/dL (3.1-7.8)
--- NOTE | 2024-12-13 12:23 | DVHDS2 ---
Physician Discharge Progress N Final Diagnosis: gdm,pih 38wks Operations or Procedures: Operations or Procedures nst reactive reviwed,sono Condition on Discharge: Good Disposition: Home Discharge Instructions: Diet: Consistent carbohydrate Activity: Light activity Medications: na Follow Up Care: Specialist: 3d Discharge Statement: "Patient was advised to return to the ER or call 911 if any headaches, dizziness, shortness of breath, chest pain, abdominal pain, bleeding, fevers, or worsening of medical condition. Patient was counseled about treatment plan, medications, possible side effects, patientverbalized understanding. All questions were answered to the best of my ability. This discharge took greater then 30 minutes in planning, reviewing docum entation, counseling the patient, and discussing with other team members." Visit Coding OBGYN Date of Service: December 13, 2024 Billing Provider: LOGAN JAMA DO VP AD PRODUCTS AND PLANNING Common Visit Codes: [id number]-[id number] OBS CARE (HIGH) VP [employer]ODUCTS AND PLANNING Procedure Codes: 16850-52- NON-STRESS TEST LOGAN JAMA DO December 13, 2024 12:23
== END 2024-12-13 12:16 | disposition home or self-care (01) ==
LOC: UNDOADMOB 08:54 → LDRP 08:54
PROVIDERS: ADMIT Obstetrics & Gynecology; ATTEND Obstetrics & Gynecology
DX: O24.419 Gestational diabetes mellitus in pregnancy, unspecified control (principal); O13.3 Gestational [pregnancy-induced] hypertension without significant proteinuria, third trimester; O99.283 Endocrine, nutritional and metabolic diseases complicating pregnancy, third trimester; E03.9 Hypothyroidism, unspecified; Z3A.38 38 weeks gestation of pregnancy; Z79.899 Other long term (current) drug therapy
CPT/HCPCS: 36415; 76818; 80053; 81001; 81002; 82570; 82948; 82962; 84156; 84550; 85025; 85610; 85730; 94760; G0378; 59025; 76819

== ENCOUNTER 2024-12-19 06:53 | Observation (INO) | payer BC, OTHER ==
--- NOTE | 2024-12-19 09:24 | DVH ---
BIOPHYSICAL PROFILE HISTORY: GDMA1/PIH/Hypothyroidism TECHNIQUE: Multiple transabdominal real-time grayscale sonographic images through the gravid uterus of the fetus with duplex Doppler color flow and M-mode spectral analysis FINDINGS: BIOPHYSICAL PROFILE: breathing score: 2 movement score: 2 tone score: 2 Quantitative DANIELITO score: 2 (DANIELITO: 18 Cm.) Total score: 8 Single live fetus in cephalic presentation. heart rate 144 beats per minute. Posterior placenta without previa or abruption IMPRESSION: Biophysical profile score: 8
--- NOTE | 2024-12-19 10:50 | DVHDS2 ---
Physician Discharge Progress N Final Diagnosis: testing for GDM,A1 and hypothyroidism Operations or Procedures: Operations or Procedures 24yo IUP@39.3wks, +FM, denies LOF/VB/UCs/AQUINO/vision changes/RUQ pain VSS, normotensive NST reactive FKC/PreE/Labor precautions reviewed. Dr. Zafar consulted, agrees with POC. Pt has appt with her later today to discuss induction date. Other Interventions Other Interventions [place] [id number] Ph: [phone] DIAGNOSTIC IMAGING Diagnostic Imaging Report : [id number] Signed PATIENT: HALEY CARTER ACCT: [id number] UNIT: [id number] : 2000 LOC: [facility] ROOM / BED: TRIAGE2 / A AGE / SEX: 24 / F ADM STATUS: ADM IN SERVICE 8 ORDERING PHYSICIAN: LENARD LÓPEZ CNM PROCEDURE(s): BPP - BIOPHYSICAL PROFILE REASON: GDMA1/PIH/Hypothyroidism ORDER NUMBER(s): [id number], ACCESSION NUMBER(s): [id number] BIOPHYSICAL PROFILE HISTORY: GDMA1/PIH/Hypothyroidism TECHNIQUE: Multiple transabdominal real-time grayscale sonographic images through the gravid uterus of the fetus with duplex Doppler color flow and M-mode spectral analysis FINDINGS: BIOPHYSICAL PROFILE: breathing score: 2 movement score: 2 tone score: 2 Quantitative DANIELITO score: 2 (DANIELITO: 18 Cm.) Total score: 8 Single live fetus in cephalic presentation. heart rate 144 beats per minute. Posterior placenta without previa or abruption IMPRESSION: Biophysical profile score: 8 ATED BY: EFREN YOST MD DICTATED DATE/TIME: 12/19/24921 SIGNED BY: EFREN YOST MD SIGNED DATE/TIME: 12/19/24921 CC: Condition on Discharge: Stable Disposition: Home Discharge Instructions: Diet: Consistent carbohydrate Activity: No Restrictions, As Tolerated Medications: see med list Follow Up Care: Specialist: f/u in 3 days Discharge Statement: "Patient was advised to return to the ER or call 911 if any headaches, dizziness, shortness of breath, chest pain, abdominal pain, bleeding, fevers, or worsening of medical condition. Patient was counseled about treatment plan, medications, possible side effects, patientverbalized understanding. All questions were answered to the best of my ability. This discharge took greater then 30 minutes in planning, reviewing documentation, counseling the patient, and discussing with other team members." Visit Coding OBGYN Date of Service: Dec 19, 2024 Billing Provider: LENARD LÓPEZ CNM FURNITURE FINISHER HELPER Common Visit Codes: [id number] OBS CARE (HIGH) FURNITURE FINISHER HELPER Procedure Codes: 97938-85- NON-STRESS TEST LENARD LÓPEZ CNM Dec 19, 2024 10:50
== END 2024-12-19 10:13 | disposition home or self-care (01) ==
LOC: LDRP 08:15 → UNDOADMOB 08:15 → LDRP 08:21 → UNDODISOB 10:13
PROVIDERS: ADMIT Obstetrics & Gynecology; ATTEND Obstetrics & Gynecology
DX: O99.283 Endocrine, nutritional and metabolic diseases complicating pregnancy, third trimester (principal); E03.9 Hypothyroidism, unspecified; O24.419 Gestational diabetes mellitus in pregnancy, unspecified control; Z3A.39 39 weeks gestation of pregnancy; Z79.899 Other long term (current) drug therapy
CPT/HCPCS: 76818; 81002; 82948; 82962; 94760; G0378; 59025; 76819

== ENCOUNTER 2024-12-22 07:04 | Observation (INO) | payer BC, OTHER ==
[~2024-12-22] VITALS: Ht 175.3 cm; Wt 95.3 kg
--- NOTE | 2024-12-22 10:21 | DVH ---
BIOPHYSICAL PROFILE HISTORY: gdma1/pih Comparison Study: US BIOPHYSICAL PROFILE on DOS: 12/19/24, US BIOPHYSICAL PROFILE on DOS: 12/13/24, US B IOPHYSICAL PROFILE on DOS: 12/07/24 TECHNIQUE: Multiple real-time grayscale sonographic images through the gravid uterus of the fetus wit h duplex doppler color flow and M-mode spectral analysis FINDINGS: BIOPHYSICAL PROFILE: breathing score: 2 movement score: 2 tone score: 2 Quantitative DANIELITO score: 2 (DANIELITO: 13.1 cm.) Total score: 8/8 Single live fetus in cephalic presentation. heart rate 147 beats per minute. Grade 2 fundal placenta without previa or abruption Biophysical profile score 8/8 corresponding to an EVAN of 12/24/24 IMPRESSION: Biophysical profile score: 8/8
--- NOTE | 2024-12-22 10:33 | DVHDS2 ---
Physician Discharge Progress N Final Diagnosis: gdm 39wks Operations or Procedures: Operations or Procedures nst reactive reviewed,sono Condition on Discharge: Good Disposition: Home Discharge Instructions: Diet: Consistent carbohydrate Activity: No Restrictions, As Tolerated Medications: na Follow Up Care: Specialist: 2d for induction Discharge Statement: "Patient was advised to return to the ER or call 911 if any headaches, dizziness, shortness of breath, chest pain, abdominal pain, bleeding, fevers, or worsening of medical condition. Patient was counseled about treatment plan, medications, possible side effects, patientverbalized understanding. All questions were answered to the best of my ability. This discharge took greater then 30 minutes in planning, reviewing documentation, counseling the patient, and discussing with other team members." Visit Coding OBGYN Date of Service: Dec 22, 2024 Billing Provider: LOGAN JAMA DO AIRCONDITIONING DRAFTING OFFICER Common Visit Codes: [id number] OBS CARE (HIGH) AIRCONDITIONING DRAFTING OFFICER Procedure Codes: 49118-98- NON-STRESS TEST OLGAN JAMA DO Dec 22, 2024 10:33
== END 2024-12-22 10:34 | disposition home or self-care (01) ==
LOC: LDRP 09:14
PROVIDERS: ADMIT Obstetrics & Gynecology; ATTEND Obstetrics & Gynecology
DX: O24.419 Gestational diabetes mellitus in pregnancy, unspecified control (principal); Z3A.39 39 weeks gestation of pregnancy; Z79.899 Other long term (current) drug therapy; Z98.890 Other specified postprocedural states
CPT/HCPCS: 76818; 81002; 82948; 82962; 94760; G0378; 59025; 76819

== ENCOUNTER 2024-12-24 05:23 | Inpatient (IN) | payer BC, OTHER ==
[~2024-12-24] VITALS: Ht 175.3 cm; Wt 94.8 kg
[2024-12-24] MEDS ORDERED: NALBUPHINE HCL 10 MG/1ml INJECTION IM PRN (23:45)
[2024-12-24] MEDS ORDERED: LIDOCAINE 2%HCL (LOCAL ANESTH.) INJ 20ML MDV IJ PRN (23:45)
[2024-12-24] MEDS: PENICILLIN G POT 5MIL/D5 50ML 50 ML IV ONE (23:45)
[2024-12-24] MEDS ORDERED: NALBUPHINE HCL 10 MG/1ml INJECTION IV PRN (23:45)
[2024-12-25] MEDS: LACT. RINGERS/OXYTOCIN 20UNITS 500 ML IV ONE ×2 (00:15→17:16)
[2024-12-25 00:21] LABS: Basophils # (auto) 0 10 ^3/uL (0-0.2); Basophils % (auto) 0.2 % (0.0-2.0); Eosinophils # (auto) 0 10 ^3/uL (0-0.8); Eosinophils % (auto) 0.5 % (0.0-7.0); Hematocrit 39.5 % (36.0-46.0); Hemoglobin 14.2 g/dL (12.2-16.2); Lymphocytes # (auto) 1.7 10 ^3/uL (0.4-5.4); Lymphocytes % (auto) 23.7 % (10.0-50.0); Mean Corpuscular Hemoglobin 32.1 pg (28.0-32.0); Mean Corpuscular Hgb Conc. 35.9 g/dL (32.0-36.0); Mean Corpuscular Volume 89.4 fL (80.0-100.0); Monocytes # (auto) 0.6 10 ^3/uL (0-1.3); Monocytes % (auto) 8.8 % (0.0-12.0); Neutrophils # (auto) 4.8 10 ^3/uL (1.6-8.6); Neutrophils % (auto) 66.8 % (37.0-80.0); Platelet Count (auto) 174 10^3/uL (140-450); Red Blood Cells 4.41 10^6/uL (4.0-5.20); Red Cell Distribution Width 12.4 % (11.8-14.3); White Blood Cell 7.1 10^3/uL (4.4-10.8)
[2024-12-25 00:38] LABS: INR 0.89 (0.9-1.15); Partial Thromboplastin Time 29.8 SEC (24.5-34.5); Prothrombin Time 9.5 sec (9.3-11.8)
[2024-12-25 00:40] LABS: Alanine Aminotransferase 24 U/L (7-40); Albumin 3.9 g/dL (3.2-4.8); Anion Gap 10 (5-15); BUN/Creatinine Ratio 17.4 (10.0-20.0); Bilirubin, Total 0.4 mg/dL (0.2-1.0); Calcium 9.4 mg/dL (8.7-10.4); Glucose 95 mg/dL (74-106); Potassium 3.6 mmol/L (3.5-5.1); Sodium 137 mmol/L (136-145); Total Protein 6.3 g/dL (5.7-8.2); Uric Acid 4.7 mg/dL (3.1-7.8)
[2024-12-25 00:47] LABS: Alkaline Phosphatase 158 U/L (46-116); Blood Urea Nitrogen 8 mg/dL (9-23); Carbon Dioxide 20 mmol/L (20-31); Chloride 107 mmol/L (98-107)
[2024-12-25] MEDS: PHISODERM TOP SOLN 240ML BTL TOP PRN (00:57)
[2024-12-25] MEDS: WITCH HAZEL-GLYCERIN PAD TOP PRN (00:57)
[2024-12-25] MEDS: DERMOPLAST 60ML BOTTLE TOP PRN (00:58)
[2024-12-25] MEDS: LACTATED RINGER'S 1,000 ML IV SCH (00:59)
[2024-12-25 01:01] LABS: Urine Bacteria FEW /hpf (None Seen); Urine Blood 1+ /uL (Negative); Urine Clarity Turbid (Clear); Urine Color Yellow (Yellow); Urine Mucus FEW (None Seen); Urine Protein, UAD 2+ (Negative); Urine Specific Gravity 1.028 (1.001-1.035); Urine Squamous Epithelial Cell MOD /hpf (<5); Urine Urobilinogen Normal (Negative); Urine WBC 18 /HPF (0-5)
[2024-12-25 01:28] LABS: Protein, Urine 155.1 mg/dL (1-14)
[2024-12-25 01:31] LABS: Creatinine, Urine 209.97 mg/dL (30.0-125.0); Urine Protein/Creatinine Ratio 0.74
[2024-12-25 01:38] LABS: Aspartate Aminotransferase 17 U/L (13-40)
[2024-12-25 01:46] LABS: Amphetamine Screen, Urine Neg (NEGATIVE); Barbiturate Scree,Urine Neg (NEGATIVE); Benzodiazephine Screen, Urine Neg (NEGATIVE); Cannabinoid Screen, Urine Neg (NEGATIVE); Cocaine Screen, Urine Neg (NEGATIVE); Opiate Scree,Urine Neg (NEGATIVE); Phencyclidine Screen, Urine Neg (NEGATIVE)
[2024-12-25] MEDS: ACCU-CHEK COMFORT CURVE STRIP VI SCH (02:00)
--- NOTE | 2024-12-25 02:08 | DVHHP2 ---
OB CC & HPI Date Date of Admission: Dec 24, 2024 Patient Identification: : 1 Para: 0 EDC: Dec 24, 2024 EGA: 40w 1d Chief Complaints: Reason for admission: induction of labor Indication for induction: post dates, other (pre eclampsia) Other reason for admission: pre eclampsia Admission Nurse Assessment Rev: Yes History of Present Complaints 24yo G1, 0000 with EDC of 12/24/[address] for scheduled IOL. complicated by pre-eclampsia and GDMA1. She reports normal mo vements, no contraction, LOF, VB, AQUINO, epigastric pain or vision changes. Medical history of hypothyroidism. Past Medical History Cardiac: No pertinent Hx Pulmonary: No pertinent Hx Central Nervous System: No pertinent Hx GI: No pertinent Hx Hemotology/Oncology: No pertinent Hx Hepatobiliary: No pertinent Hx Psychiatric: No pertinent Hx Musculoskeletal: No pertinent Hx Rheumotologic: No pertinent Hx Infectious Disease: No peritnent Hx ENT: No pertinent Hx Renal/: No pertinent Hx Endocrine: Hypothyroidism Dermatology: No pertinent Hx Others GDMA1 Past Surgical History: No pertinent Hx OB History OB History Care: Good Care Ultrasounds: Normal mid trimester US Obstetrical Complications: Gestational Diabetes, Pre-eclampsia Medical Complications: Other (Hypothyroidism) 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 Allergies: Coded Allergies: NO KNOWN ALLERGIES (Unverified , 12/25/24) Home Meds Reported Medications Levothyroxine Sodium (Levothyroxine Sodium) 25 Mcg Tab, 25 MCG PO QAM, MCG 11/14/24 Vit W/ Ferrous Fumara (PNV PLUS MULTIVI) Plus Tab, 1 OR, TAB 10/30/24 Current Medications Current Medications Medications (Trade) Dose Ordered Sig/Jared Route PRN Reason Start Time Stop Time Status Last Admin Lactated Ringer's 1,000 ml @ 125 mls/hr Q8H IV 12/24/24 23:45 12/25/24 00:59 Nalbuphine HCl (Nubain) 10 mg Q4HP PRN IM MODERATE PAIN (4-6 PAIN SCALE) 12/24/24 23:45 Nalbuphine HCl (Nubain) 10 mg Q4HP PRN IV MODERATE PAIN (4-6 PAIN SCALE) 12/24/24 23:45 Penicillin G Potassium [id number] units/Dextrose 50 ml @ 100 mls/hr Q4H IV 12/25/24 03:45 Diagnostic Test (Pha) (Accu-Chek Comfort Curve T) 1 strip Q4HR 12/25/24 02:00 Witjw Myriam (Tucks) 1 pad PRN PRN TOP PERINEAL AREA DISCOMFORT 12/24/24 23:45 12/25/24 00:57 Sodium Lauryl Sulfate (Phisoderm) 240 ml PRN PRN TOP PERINEAL AREA DISCOMFORT 12/24/24 23:45 12/25/24 00:57 Benzocaine (Dermoplast) 1 applic PRN PRN TOP PERINEAL AREA DISCOMFORT 12/24/24 23:45 12/25/24 00:58 Misoprostol (Cytotec) 50 mcg Q4HPRN PRN PO CERVICAL RIPENING 12/24/24 23:45 Lidocaine HCl (Xylocaine) 20 ml ONCE PRN IJ PERINEAL AREA DISCOMFORT 12/24/24 23:45 Levothyroxine Sodium (Synthroid Tablet) 25 mcg DAILY PO 12/25/24 08:00 Family & Social History Family/Social History Past Family/Social History: Diabetes Mellitus - mother, Maternal GF and Maternal Grand Uncles Blood Type: O+ Rubella: immune RPR/VDRL: Negative GBS Status: Positive HBsAG: Negative Review of Systems Constitutional: No symptom reported Ears, Nose, & Throat: No symptom reported Eyes: No symptom reported Pulmonary/Respiratory: No symptom reported Cardiovascular: No symptom reported Gastrointestinal: No symptom reported Genitourinary: No symptom reported Musculoskeletal: No symptom reported Skin: No symptom reported Psychiatric: No symptom reported Endocrine: No symptom reported Hemotologic/Lymphatic: No symptom reported OB Admission Exam Physical Exam HEENT: TMs Normal, Nasal Mucosa Normal, Eyes non-injected, Oropharynx Normal, PERRLA, Moist Membranes, EOMI Heart: Rhythm Normal Lungs: Clear Abdomen: Gravid (non-tender) Extremities: Normal Reflexes: Normal Cervical Dilatation: 2cm Effacement: Other (40%) Station: -2 Membranes: Intact Heart Rate: 130's Accelerations: Accelerations Present Decelerations: No Decelerations Admissions Recruiter Variability: Average (6-25) Contractions on Admission: 6-10 Minutes Apart Date/Time Contractions Began: not felt by patient Frequency of Contractions: irregular Intensity: Mild OB Plan Plan Admitting Diagnosis: IUP at 40w 1d Preeclampsia GDMA1 Hypothyroidism GBS Carrier IOL Plan: Induction Induction Methd: Misoprostol protocol Other Plan: IOL process, cervical ripening with medication, cervical ripening balloon, oxytocin etc including the risks, benefits and options discussed with the patient & partner. Informed consent obtained. Risk of pain, bleeding, infection, discussed with the patient and partner Consent for possible blood transfusion obtained. All questions answered. Admit to Place for scheduled IOL Routine L&D admission orders Misoprostol per protocol EFM per policy & protocol Intrauterine resuscitation PRN GBS prophylaxis with Penicillin IVPB (To be started when in labor; at 4cm cervical dilation) Labor analgesia PRN Encourage frequent position change and ambulation to facilitate labor & descent Supportive Care Anticipate Visit Coding OBGYN Date of Service: Dec 24, 2024 Billing Provider: JOSEPH RAMIRES CNM UTILITIES SERVICE INVESTIGATOR Common Visit Codes: [id number] INP/OBS CARE (HIGH) UTILITIES SERVICE INVESTIGATOR Procedure Codes: 49907-56- NON-STRESS TEST JOSEPH RAMIRES CNM Dec 25, 2024 02:08
[2024-12-25] MEDS: miSOPROStol 50 MCG per PRE-CUT 1/2 TAB PO PRN (02:22)
[2024-12-25] MEDS ORDERED: PENICILLIN G POTASSIUM 2,500,000 UNITS in D5W 5% 50 ML IV SCH (03:45)
--- NOTE | 2024-12-25 06:50 | DVHPN2 ---
[facility] Labor Progress Note Date and Time Seen Date Seen: Dec 25, 2024 Time Seen: 06:30 Subjective Patient reports: No new complaints Objective Vital Signs VSS Monitoring Method Monitoring Method: External Heart Rate Heart Rate Baseline: 125 Heart Rate Variability: Moderate Presence of FHR Accelerations: Yes Presence of FHR Decelerations: No Changes in Trends of Patterns: No Are all 5 Components of the FH: Yes Contractions Contractions Frequency: Other (Q2-6min) Duration of Contraction: 70 Contractions Intensity: Mild Contractions Resting Tone: Relaxed Membranes Membranes: Intact Vaginal Exam Vag Exam Deferred: Yes Medications Medications - Pitocin: No Medication - Epidural: No Medication - Other Misoprostol dose #1 given at 02:22 Lab Results Lab Results Current Medications Medications (Trade) Dose Ordered Sig/Jared Start Time Stop Time Status Last Admin Dose Admin Lactated Ringer's 1,000 ml @ 125 mls/hr Q8H 12/24/24 23:45 12/25/24 04:03 125 MLS/HR Nalbuphine HCl (Nubain) 10 mg Q4HP PRN 12/24/24 23:45 Nalbuphine HCl (Nubain) 10 mg Q4HP PRN 12/24/24 23:45 Penicillin G Potassium 50 ml @ 100 mls/hr ONCE ONCE 12/24/24 23:45 12/25/24 04:29 DC Penicillin G Potassium [id number] units/Dextrose 50 ml @ 100 mls/hr Q4H 12/25/24 03:45 12/25/24 04:28 DC Diagnostic Test (Pha) (Accu-Chek Comfort Curve T) 1 strip Q4HR 12/25/24 02:00 12/25/24 02:00 1 STRIP Witch Myriam (Tucks) 1 pad PRN PRN 12/24/24 23:45 12/25/24 00:57 1 PAD Sodium Lauryl Sulfate (Phisoderm) 240 ml PRN PRN 12/24/24 23:45 12/25/24 00:57 240 ML Benzocaine (Dermoplast) 1 applic PRN PRN 12/24/24 23:45 12/25/24 00:58 1 APPLIC Misoprostol (Cytotec) 50 mcg Q4HPRN PRN 12/24/24 23:45 12/25/24 02:22 50 MCG Lidocaine HCl (Xylocaine) 20 ml ONCE PRN 12/24/24 23:45 Oxytocin 500 ml @ 999 mls/hr Q31M ONCE 12/24/24 23:45 12/25/24 00:15 DC Oxytocin 500 ml @ 125 mls/hr Q4H ONCE 12/25/24 00:15 12/25/24 04:14 DC Levothyroxine Sodium (Synthroid Tablet) 25 mcg DAILY 12/25/24 08:00 Penicillin G Potassium [id number] units/Dextrose 50 ml @ 100 mls/hr Q4H 12/25/24 15:00 Penicillin G Potassium 50 ml @ 100 mls/hr ONCE ONCE 12/25/24 11:00 12/25/24 11:29 Laboratory Tests Test 12/25/24 04:44 12/24/24 23:59 12/24/24 00:00 Range/Units POC Glucose 94 70-106 mg/dl White Blood Count 7.1 4.4-10.8 10^3/uL Red Blood Count 4.41 4.0-5.20 10^6/uL Hemoglobin 14.2 12.2-16.2 g/dL Hematocrit 39.5 36.0-46.0 % Mean Corpuscular Volume 89.4 80.0-100.0 fL Mean Corpuscular Hemoglobin 32.1 H 28.0-32.0 pg Mean Corpuscular Hemoglobin Concent 35.9 32.0-36.0 g/dL Red Cell Distribution Width 12.4 11.8-14.3 % Platelet Count 174 140-450 10^3/uL Mean Platelet Volume 9.3 6.9-10.8 fL Neutrophils (%) (Auto) 66.8 37.0-80.0 % Lymphocytes (%) (Auto) 23.7 10.0-50.0 % Monocytes (%) (Auto) 8.8 0.0-12.0 % Eosinophils (%) (Auto) 0.5 0.0-7.0 % Basophils (%) (Auto) 0.2 0.0-2.0 % Neutrophils # (Auto) 4.8 1.6-8.6 10 ^3/uL Lymphocytes # (Auto) 1.7 0.4-5.4 10 ^3/uL Monocytes # (Auto) 0.6 0-1.3 10 ^3/uL Eosinophils # (Auto) 0 0-0.8 10 ^3/uL Basophils # (Auto) 0 0-0.2 10 ^3/uL Nucleated Red Blood Cells 0.0 % Prothrombin Time 9.5 9.3-11.8 sec Prothrombin Time INR 0.89 L 0.9-1.15 Activated Partial Thromboplast Time 29.8 24.5-34.5 SEC Fibrinogen 396 H 177-375 mg/dL Sodium Level 137 136-145 mmol/L Potassium Level 3.6 3.5-5.1 mmol/L Chloride Level 107 98-107 mmol/L Carbon Dioxide Level 20 20-31 mmol/L Anion Gap 10 5-15 Blood Urea Nitrogen 8 L 9-23 mg/dL Creatinine 0.46 L 0.550-1.02 mg/dL Glomerular Filtration Rate Calc 136 >90 mL/min BUN/Creatinine Ratio 17.4 10.0-20.0 Serum Glucose 95 74-106 mg/dL Uric Acid 4.7 3.1-7.8 mg/dL Calcium Level 9.4 8.7-10.4 mg/dL Total Bilirubin 0.4 0.2-1.0 mg/dL Aspartate Amino Transferase (AST) 17 13-40 U/L Alanine Aminotransferase (ALT) 24 7-40 U/L Alkaline Phosphatase 158 H 46-116 U/L Total Protein 6.3 5.7-8.2 g/dL Albumin 3.9 3.2-4.8 g/dL Treponema pallidum Antibody Non-reactive Negative Hepatitis C Antibody Pending Urine Color Yellow Yellow Urine Clarity Turbid H Clear Urine pH 6.0 5.0-9.0 Urine Specific [place] 1.028 1.001-1.035 Urine Protein 2+ H Negative Urine Ketones Negative Negative Urine Blood 1+ H Negative /uL Urine Nitrite Negative Negative Urine Bilirubin Negative Negative Urine Urobilinogen Normal Negative mg/dL Urine Leukocyte Esterase 3+ Negative /uL Urine RBC 6 0 - 4 /hpf Urine Microscopic WBC 18 H 0-5 /HPF Urine Squamous Epithelial Cells Mod <5 /hpf Urine Calcium Oxalate Crystals Mod None Seen Urine Bacteria Few H None Seen /hpf Urine Mucus Few None Seen Urine Creatinine 209.97 H 30.0-125.0 mg/dL Urine Protein/Creatinine Ratio 0.74 Urine Glucose Trace Normal mg/dL Urine Total Protein 155.1 H 1-14 mg/dL Urine Opiates Screen Neg NEGATIVE Urine Fentanyl Screen Neg NEGATIVE Urine Barbiturates Screen Neg NEGATIVE Urine Phencyclidine Screen Neg NEGATIVE Urine Amphetamines Screen Neg NEGATIVE Urine Benzodiazepines Screen Neg NEGATIVE Urine Cocaine Screen Neg NEGATIVE Urine Cannabinoids Screen Neg NEGATIVE Assessment Assessment IUP at 40w 1d Pre-eclampsia GDMA1 GBS carrier IOL Hypothyroidism Category I FHR tracing Plan Plan Continue Misoprostol per protocol EFM per protocol Intrauterine resuscitation PRN Labor analgesia PRN Supportive care Anticipate Plan discussed with: Patient, Spouse Visit Coding OBGYN Date of Service: Dec 25, 2024 Billing Provider: JOSEPH RAMIRES CNM LENS EDGER Common Visit Codes: [id number] INP/OBS CARE(HIGH) LENS EDGER Procedure Codes: 94923-03- NON-STRESS TEST JOSEPH RAMIRES CNM Dec 25, 2024 06:50
[2024-12-25] MEDS: LEVOTHYROXINE SODIUM 25 MCG TAB PO SCH (08:08)
[2024-12-25] MEDS ORDERED: LACTATED RINGER'S 1,000 ML IV ONE (09:30)
[2024-12-25] MEDS ORDERED: TERBUTALINE SULFATE 1 MG/ML 1ML VIAL SC PRN (09:30)
[2024-12-25] MEDS ORDERED: ePHEDrine SULFATE 50 MG/ML AMP IV ONE (09:30)
[2024-12-25] MEDS ORDERED: ePHEDrine SULFATE 50 MG/ML AMP ONE (10:15)
[2024-12-25] MEDS: PENICILLIN G POT 5MIL/D5 50ML 50 ML IV ONE (10:56)
[2024-12-25] MEDS ORDERED: ONDANSETRON HCL 4 MG/2 ML VIAL IV PRN ×2 (11:30→17:00)
[2024-12-25] MEDS: ROPIVACAINE HCL 200 ML ONE (11:31)
[2024-12-25] MEDS: LACT. RINGERS/OXYTOCIN 20UNITS 1,000 ML IV SCH (11:32)
[2024-12-25] MEDS: PENICILLIN G POTASSIUM 2,500,000 UNITS in D5W 5% 50 ML IV SCH (15:02)
[2024-12-25] MEDS ORDERED: IBUPROFEN 600 MG TAB PO PRN (17:00)
[2024-12-25] MEDS ORDERED: ACETAMINOPHEN 325 MG TAB PO PRN (17:00)
[2024-12-25 18:30] VITALS: BP 148/80; PULSE 89; RESP 16; TEMP 98; O2SAT 97
[2024-12-25] MEDS: DOCUSATE SOD 100 MG CAP PO SCH (22:00)
[2024-12-25 23:00] VITALS: BP 150/89; PULSE 98; RESP 17; TEMP 98; O2SAT 96
--- NOTE | 2024-12-25 23:13 | LDN2 ---
Labor and Delivery Note Date 12/25/24 Age 24 1 Para 0 AB 0 EDC 40+ EGA 40+ Diagnosis induction post dates Vaginal Delivery: VTX Vacuum Assisted: No Placenta: Spontaneous Sex: Female Weight 8 lbs Apgars 9 Nuchal Cord Transected: No (loose x1) Amniotic Fluid: Clear Anesthesia Epidural Episiotomy: No Extension: Yes (2nd degree posterior) Repaired with 2-0 chromic EBL 300cc Labs Laboratory Tests 06/19/24 12:13: Hepatitis B Surface Antigen Negative, HIV (1&2) Antibody Negative, Rubella Antibody Positive Blood Bank 12/24/24 23:59: Blood Type O POSITIVE Complications none Conditions stable Distresser none present ANDREWS WEN DO Dec 25, 2024 23:13
[2024-12-26 02:36] VITALS: BP 134/79; PULSE 84; RESP 16; TEMP 98.4; O2SAT 96
[2024-12-26 07:24] VITALS: BP 122/72; PULSE 84; RESP 18; TEMP 98.3; O2SAT 95
[2024-12-26 09:02] LABS: Basophils # (auto) 0 10 ^3/uL (0-0.2); Basophils % (auto) 0.5 % (0.0-2.0); Eosinophils # (auto) 0 10 ^3/uL (0-0.8); Eosinophils % (auto) 0.4 % (0.0-7.0); Hematocrit 32.2 % (36.0-46.0); Hemoglobin 11.4 g/dL (12.2-16.2); Lymphocytes % (auto) 21.2 % (10.0-50.0); Mean Corpuscular Hemoglobin 32.1 pg (28.0-32.0); Mean Corpuscular Hgb Conc. 35.3 g/dL (32.0-36.0); Mean Corpuscular Volume 90.7 fL (80.0-100.0); Monocytes # (auto) 0.6 10 ^3/uL (0-1.3); Monocytes % (auto) 6.1 % (0.0-12.0); Neutrophils # (auto) 6.9 10 ^3/uL (1.6-8.6); Neutrophils % (auto) 71.8 % (37.0-80.0); Platelet Count (auto) 146 10^3/uL (140-450); Red Blood Cells 3.55 10^6/uL (4.0-5.20); Red Cell Distribution Width 12.5 % (11.8-14.3); White Blood Cell 9.6 10^3/uL (4.4-10.8)
[2024-12-26 11:30] VITALS: BP 125/75; PULSE 85; RESP 18; TEMP 98.2; O2SAT 97
[2024-12-26 15:30] VITALS: BP 134/83; PULSE 90; RESP 18; TEMP 98.2; O2SAT 96
[2024-12-26] MEDS ORDERED: IBU600T PO (16:16)
[2024-12-26] MEDS ORDERED: DOCU-265 PO (16:16)
[2024-12-26] MEDS ORDERED: PREN1TAB71 PO (16:16)
[2024-12-26] MEDS ORDERED: LEVO25TA6 PO (16:16)
--- NOTE | 2024-12-26 16:23 | DVHDS2 ---
Obstetrics Discharge Summary Obstetrics Discharge Summary Date of Admission: Dec 24, 2024 Date of Discharge: Dec 26, 2024 Reason For Admission: Induction of Labor Procedures: NST, Mgmt of Obstetrics Compli Intrapartum Procedures: Spontaneous vaginal deliv Procedures: Hct/date: (12/26/24), Hgb/date: (12/26/24) Operative Complicat: Laceration (2nd degree posterior) Discharge Diagnosis: Term -Delivered, Preeclampsia (without severe features) Discharge Information: Activity (as tolerated, no heavy lifting and nothing in the vagina for 6 weeks), Diet (Routine), Medications (Rx sent), Instructions (Routine), Discharge to (Home, Dr. Zafar consulted, okay to D/C home), Accompanied by (partner), Discarge date (12/26/24) Visit Coding OBGYN Date of Service: Dec 26, 2024 Billing Provider: LENARD LÓPEZ CNM VOICE OVER ARTIST Common Visit Codes: [id number]/OBS DISCH DAY <30MIN LENARD LÓPEZ CNM Dec 26, 2024 16:23
--- NOTE | 2024-12-26 16:36 | DVHPN2 ---
Progress Note Date Seen: Dec 26, 2024 Subjective S: bleeding is less, eating food without issues, denies lightheaded/dizziness, pain well controlled with oral medications, no concerns with urinating, passing flatus, no BM yet, ambulating well, well. Denies AQUINO/vision changes/RUQ pain. vital signs Vital Sign Date Time Temp Pulse Resp B/P (MAP) Pulse Ox O2 Delivery O2 Flow Rate FiO2 12/26/24 15:30 98.2 90 18 134/83 (100) 96 98.2 12/26/24 07:30 Room Air Total Intake and Output 12/25/24 12/25/24 12/26/24 15:00 23:00 07:00 Output Total 350 ml 700 ml Balance -350 ml -700 ml medications Current Medications Medications Dose Ordered Sig/Jared Route Start Time Stop Time Status Last Admin Dose Admin Nalbuphine HCl 10 mg Q4HP PRN IM 12/24/24 23:45 Cancel Nalbuphine HCl 10 mg Q4HP PRN IV 12/24/24 23:45 Cancel Witch Myriam 1 pad PRN PRN TOP 12/24/24 23:45 12/25/24 00:57 1 PAD Sodium Lauryl Sulfate 240 ml PRN PRN TOP 12/24/24 23:45 12/25/24 00:57 240 ML Benzocaine 1 applic PRN PRN TOP 12/24/24 23:45 12/25/24 00:58 1 APPLIC Lidocaine HCl 20 ml ONCE PRN IJ 12/24/24 23:45 Cancel Terbutaline Sulfate 0.25 mg ONCE PRN SC 12/25/24 09:30 Cancel Ondansetron HCl 4 mg Q4HPRN PRN IV 12/25/24 11:30 Ibuprofen 600 mg Q6HP PRN PO 12/25/24 17:00 Acetaminophen 650 mg Q4HP PRN PO 12/25/24 17:00 Ondansetron HCl 4 mg Q4HP PRN IV 12/25/24 17:00 Cancel Docusate Sodium 200 mg HS PO 12/25/24 22:00 Levothyroxine Sodium 25 mcg QAM PO 12/27/24 07:00 laboratory and microbiology Laboratory Tests 12/26/24 08:48 12/24/24 23:59 Test 12/24/24 23:59 Range/Units Serum Glucose 95 74-106 mg/dL Objective VSS, see chart, normotensive Chest: heart sounds normal and lung sounds clear bilaterally Abd: soft, non-tender, fundus at U/firm/midline, active bowel sounds, no rebound or guarding Perineum: sutures intact, edges well approximated, no erythema/edema noted Ext: Non-tender, +1 edema, 2+ BLE DTRs Lochia: minimal See lab results Problems(with codes): (1) (normal spontaneous vaginal delivery) (2) Precipitous drop in hematocrit (3) Preeclampsia (4) Hypothyroidism Assessment/Plan A: 24yo now PPD#1 s/p Preeclampsia without severe features Hypothyroidism Anemia Rh+ Rubella Immune Breast and formula feeding Pain control with PO medications Bowel regimen P: D/C home today Rx sent to pharmacy for levothyroxine, Ibuprofen, and Colace precautions and preeclampsia warning signs reviewed Recommended sitz bath BID F/U with [facility] office in 1 week Plan discussed with: Patient, Spouse, Other (Family) Visit Coding OBGYN Date of Service: Dec 26, 2024 Billing Provider: LENARD LÓPEZ CNM IN SERVICE EDUCATION TEACHER Common Visit Codes: [id number] INP/OBS CARE(HIGH) KELLY POSADAS STUDENTMDW Dec 26, 2024 16:36
[2024-12-27] MEDS ORDERED: LEVOTHYROXINE SODIUM 25 MCG TAB PO SCH (07:00)
== END 2024-12-26 17:03 | disposition home or self-care (01) | DRG 807 ==
LOC: LDRP 23:24
PROVIDERS: ADMIT Obstetrics & Gynecology; ATTEND Obstetrics & Gynecology
PROC: 10E0XZZ Delivery of Products of Conception, External Approach (ICD-10-PCS; principal; 2024-12-25)
PROC: 0KQM0ZZ Repair Perineum Muscle, Open Approach (ICD-10-PCS; 2024-12-25)
PROC: 3E033VJ Introduction of Other Hormone into Peripheral Vein, Percutaneous Approach (ICD-10-PCS; 2024-12-25)
PROC: 3E0P7VZ Introduction of Hormone into Female Reproductive, Via Natural or Artificial Opening (ICD-10-PCS; 2024-12-25)
PROC: 3E0R3BZ Introduction of Anesthetic Agent into Spinal Canal, Percutaneous Approach (ICD-10-PCS; 2024-12-25)
PROC: 00HU33Z Insertion of Infusion Device into Spinal Canal, Percutaneous Approach (ICD-10-PCS; 2024-12-25)
DX: O48.0 Post-term pregnancy (principal); Z37.0 Single live birth; O14.94 Unspecified pre-eclampsia, complicating childbirth; O24.420 Gestational diabetes mellitus in childbirth, diet controlled; O99.284 Endocrine, nutritional and metabolic diseases complicating childbirth; O99.824 Streptococcus B carrier state complicating childbirth; O69.81X0 Labor and delivery complicated by cord around neck, without compression, not applicable or unspecified; E03.9 Hypothyroidism, unspecified; O90.81 Anemia of the puerperium; D64.9 Anemia, unspecified; O70.1 Second degree perineal laceration during delivery; Z3A.40 40 weeks gestation of pregnancy
CPT/HCPCS: 36415; 59409; 62282; 80053; 80307; 81001; 81002; 82570; 82948; 82962; 84156; 84550; 85025; 85384; 85610; 85730; 86780; 86803; 86850; 86900; 86901; 94760; 94762; 96360; 96361; 96365; 96366; G0378; J2540; J2590; J7060

== ENCOUNTER 2025-01-31 10:12 | Outpatient (CLI) | payer BC ==
[~2025-01-31 10:12] MED LIST changes: +DOCU-265 PO; +IBU600T PO; -PREN1TAB71 OR; +PREN1TAB71 PO
== END 2025-01-31 17:00 | disposition home or self-care (01) ==
LOC: LAB 10:12
PROVIDERS: ATTEND Obstetrics & Gynecology
DX: O99.810 Abnormal glucose complicating pregnancy (principal); Z3A.00 Weeks of gestation of pregnancy not specified
CPT/HCPCS: 82951